=== PATIENT | male | born 1965 | race Caucasian/White ===

== ENCOUNTER → 2022-10-18 | Day surgery (SDC) | payer BC ==
[~2022-10-18] MED LIST: ATENOLOL50 MG PO; CALCIUM CITRAT250 MG PO; CRESTOR10 MG PO; GLYCOPYRROLATE INJ 0.2 MG/ML VIAL ONE; HEMP OIL PO; KRILL OIL 1,001 EACH PO; LIDOCAINE HCL 2% LOCAL INJ 5 ML SDV VIAL INJ ONE; LISINOPRIL10 MG PO; METOCLOPRAMIDE HCL 10 MG/2ML VIAL ONE; MIDAZOLAM HCL 2 MG/2 ML VIAL ONE; MILK THISTLE500 MG PO; MULTI-VITAMIN1 EACH PO; OMEPRAZOLE40 MG PO; POVIDONE IODINE 0.05% 0.05 % ML PO ONE; PROPOFOL IV EMULSION 10 MG/ML 20 ML VIAL ONE; WEGOVY0.25 MG/0. SC; [UNRECOGNIZED DRUG - OTHER] SC
[2022-10-18 08:30] VITALS: BP 105/64
== END | disposition home or self-care (01) ==
LOC: OR 05:31
PROVIDERS: ATTEND Internal Medicine Gastroenterology
DX: K22.70 Barrett's esophagus without dysplasia (principal); D12.0 Benign neoplasm of cecum; D12.3 Benign neoplasm of transverse colon; K44.9 Diaphragmatic hernia without obstruction or gangrene; K21.9 Gastro-esophageal reflux disease without esophagitis; K57.30 Diverticulosis of large intestine without perforation or abscess without bleeding; K76.0 Fatty (change of) liver, not elsewhere classified; G47.33 Obstructive sleep apnea (adult) (pediatric); R63.4 Abnormal weight loss; I10 Essential (primary) hypertension; I49.1 Atrial premature depolarization; Z01.810 Encounter for preprocedural cardiovascular examination; Z79.899 Other long term (current) drug therapy; Z79.85 Long-term (current) use of injectable non-insulin antidiabetic drugs
CPT/HCPCS: 43239; 45385; 88305; 93005; J2001; J2704; J2765; 45378; 88304; J2250